=== PATIENT | male | born 1940 | race Caucasian/White ===

== ENCOUNTER 2017-08-08 16:22 | Emergency (ER) | payer MEDICARE ==
[~2017-08-08] VITALS: Ht 167.6 cm; Wt 70.0 kg
[2017-08-08] MEDS ORDERED: ACETAMINOPHEN 325MG TABLET PO ONE (17:00)
[2017-08-08 19:54] VITALS: BP 133/65
== END 2017-08-08 19:57 | disposition home or self-care (01) ==
LOC: ER 16:55
DX: S00.03XA Contusion of scalp, initial encounter (principal); M79.621 Pain in right upper arm; I10 Essential (primary) hypertension; E78.00 Pure hypercholesterolemia, unspecified; E11.9 Type 2 diabetes mellitus without complications; Z79.82 Long term (current) use of aspirin; W01.0XXA Fall on same level from slipping, tripping and stumbling without subsequent striking against object, initial encounter; Y93.89 Activity, other specified; Y92.512 Supermarket, store or market as the place of occurrence of the external cause
CPT/HCPCS: 70450; 73030; 73060; 82962; 99284